=== PATIENT | male | born 1985 | race African-American/Black ===

== ENCOUNTER 2017-05-23 13:42 | Emergency (ER) | payer OTHER | END 2017-05-23 14:25 | disposition home or self-care (01) | LOC: FTE 13:42 → E/R 14:25 | DX: J32.9 Chronic sinusitis, unspecified (principal) | CPT/HCPCS: 99283; Z7502 ==

== ENCOUNTER 2018-09-02 10:00 | Emergency (ER) | payer OTHER | END 2018-09-02 12:00 | disposition home or self-care (01) | LOC: FTE 10:00 | DX: K08.89 Other specified disorders of teeth and supporting structures (principal); F17.210 Nicotine dependence, cigarettes, uncomplicated | CPT/HCPCS: 99282; Z7502 ==

== ENCOUNTER 2018-12-04 10:33 | Emergency (ER) | payer OTHER | END 2018-12-04 12:10 | disposition home or self-care (01) | LOC: FTE 10:33 | DX: K08.89 Other specified disorders of teeth and supporting structures (principal); F17.210 Nicotine dependence, cigarettes, uncomplicated | CPT/HCPCS: 99283; Z7502 ==